=== PATIENT | female | born 1960 | race Caucasian/White ===

== ENCOUNTER 2018-09-02 18:06 | Emergency (ER) | payer OTHER ==
[~2018-09-02] VITALS: Ht 167.6 cm; Wt 117.9 kg
[2018-09-02] MEDS ORDERED: METFORMIN HCL500 MG (18:27)
== END 2018-09-02 22:34 | disposition home or self-care (01) ==
LOC: ER 18:06
DX: R42 Dizziness and giddiness (principal)